=== PATIENT | female | born 1970 | race Caucasian/White ===

== ENCOUNTER 2020-04-30 09:28 | Outpatient (CLI) | payer OTHER ==
--- NOTE | 2020-05-10 10:32 | Mammography Report ---
BILATERAL DIGITAL SCREENING MAMMOGRAM 3D/2D: 04/30/2020 CLINICAL: Routine screening. Comparison: Mammogram 11/28/2016. [facility] No significant masses, calcifications, or other findings are seen in either breast. IMPRESSION: NEGATIVE There is no mammographic evidence of malignancy. A 1 year screening mammogram is recommended. This exam was interpreted at Station ID: [id number]. NOTE: For mammograms, a report in lay terms will be sent to the patient. Approximately 15% of breast malignancies will not be visualized mammographically. In the management of a palpable breast mass, a negative mammogram must not discourage biopsy of a clinically suspicious lesion. Electronically Signed By: Jaime Pimentel M.D. slc/:05/09/2020 08:02:02 ACR BI-RADS Category 1: Negative 3341F PARENCHYMAL PATTERN: (A) - The breast(s) demonstrate(s) scattered fibroglandular densities. BI-RADS CATEGORY: (1) - 1 RECOMMENDATION: (ANNUAL) - Recommend routine annual screening mammography. [id number] 1 year screening LATERALITY: (B)
== END 2020-04-30 09:29 | disposition home or self-care (01) ==
LOC: EDSEX 09:28 → DI 09:28
PROVIDERS: ATTEND Physician Assistant
DX: Z12.31 Encounter for screening mammogram for malignant neoplasm of breast (principal)
CPT/HCPCS: 77063; 77067

== ENCOUNTER 2020-06-12 08:31 | Outpatient (CLI) | payer OTHER ==
--- NOTE | 2020-06-12 16:50 | DEXA Report ---
PROCEDURE: Dexa Spine and/or Hip INDICATIONS: OTHER PRIMARY OVARIAN FAILURE TECHNIQUE: Dual energy x-ray absorptiometry (DXA) was performed on a [employer] System. Regions measur ed are the AP Spine, femoral neck, and if needed forearm. COMPARISON: None. FINDINGS: Lumbar Spine: Bone Mineral Density 1.095 g/cm/cm,T score -0.7, normal bone density Left Hip: Bone Mineral Density 1.06 to g/cm/cm,T score 0.4, normal bone density Left Femoral Neck: Bone Mineral Density 0.936 g/cm/cm, T score -0.7, normal bone density (T score greater or equal to -1.0: NORMAL) (T score from -1.1 to -2.4: OSTEOPENIA) (T score less than or equal to -2.5 to: OSTEOPOROSIS) Impression: Normal bone density. Patients with diagnosis of osteoporosis or osteopenia should have regular bone mineral density assess ment. For those eligible for Medicare, routine testing is allowed once every 2 years. Testing frequ ency can be increased for patients who have rapidly progressing disease or for those who are receivin g medical therapy to restore bone mass. Reviewed by: Goldie Buckner MD on 06/12/2020 4:49 PM PST Approved by: Goldie Buckner MD on 06/12/2020 4:49 PM PST Station ID: [id number]
== END 2020-06-12 08:32 | disposition home or self-care (01) ==
LOC: DI 08:31
PROVIDERS: ATTEND Physician Assistant
DX: E28.39 Other primary ovarian failure (principal)
CPT/HCPCS: 77080

== ENCOUNTER 2020-07-05 09:35 | Outpatient (CLI) | payer OTHER ==
--- NOTE | 2020-07-05 10:23 | XRAY Report ---
PROCEDURE: Ankle 3 View LT INDICATIONS: PAIN IN L FOOT, ANKLE AND LOWER LEG TECHNIQUE: 3 views of the ankle were acquired. COMPARISON: None FINDINGS: Bones: No fractures or dislocations. Ankle mortise is normally aligned. No suspicious bony lesions . Soft tissues: No tibiotalar joint effusion. Achilles tendon appears normal. IMPRESSION: No evidence acute bony abnormality of the left ankle. Reviewed by: Francisco Javier Blackburn MD on 07/05/2020 10:22 AM [facility] Approved by: Francisco Javier Blackburn MD on 07/05/2020 10:22 AM [facility] Station ID: [id number]
--- NOTE | 2020-07-05 10:28 | XRAY Report ---
PROCEDURE: Foot 3 View LT INDICATIONS: PAIN IN L FOOT, ANKLE AND LOWER LEG TECHNIQUE: 3 views of the foot were acquired. COMPARISON: None FINDINGS: Bones: No fractures or dislocations. No suspicious bony lesions. Soft tissues: No tibiotalar joint effusion. Achilles tendon appears normal. IMPRESSION: No evidence acute bony abnormality of the left foot. Reviewed by: Francisco Javier Blackburn MD on 07/05/2020 10:27 AM [facility] Approved by: Francisco Javier Blackburn MD on 07/05/2020 10:27 AM [facility] Station ID: [id number]
--- NOTE | 2020-07-05 11:02 | XRAY Report ---
PROCEDURE: Tib/Fib LT INDICATIONS: PAIN IN L FOOT, ANKLE AND LOWER LEG TECHNIQUE: 2 views of the tibia and fibula were acquired. COMPARISON: None FINDINGS: Bones: No fractures or dislocations. No suspicious bony lesions. Soft tissues: No suspicious soft tissue calcifications or masses. IMPRESSION: No evidence acute bony abnormality of the left tibia and fibula. Reviewed by: Francisco Javier Blackburn MD on 07/05/2020 11:00 AM PST Approved by: Francisco Javier Blackburn MD on 07/05/2020 11:00 AM PST Station ID: [id number]
== END 2020-07-05 09:36 | disposition home or self-care (01) ==
LOC: DI 09:35
PROVIDERS: ATTEND Physician Assistant
DX: M79.672 Pain in left foot (principal); M79.662 Pain in left lower leg; M25.572 Pain in left ankle and joints of left foot